=== PATIENT | female | born 1980 | race Two or more races ===

== ENCOUNTER 2017-06-16 16:23 | Emergency (ER) | payer OTHER | END 2017-06-16 17:50 | disposition home or self-care (01) | LOC: ER 16:23 | DX: O9A.211 Injury, poisoning and certain other consequences of external causes complicating pregnancy, first trimester (principal); S16.1XXA Strain of muscle, fascia and tendon at neck level, initial encounter; Z3A.11 11 weeks gestation of pregnancy; V49.49XA Driver injured in collision with other motor vehicles in traffic accident, initial encounter; Y93.89 Activity, other specified; Y99.8 Other external cause status; Y92.488 Other paved roadways as the place of occurrence of the external cause | CPT/HCPCS: 76801; 76817; 99284-25 ==